=== PATIENT | female | born 1990 | race Caucasian/White ===

== ENCOUNTER 2018-10-27 16:57 | Inpatient (IN) | payer SELFPAY ==
[~2018-10-27] VITALS: Ht 154.9 cm; Wt 50.7 kg
[2018-10-27] MEDS ORDERED: GUAI600T30 PO (17:21)
[2018-10-27 17:46] LABS: BASOPHILS % (AUTO) 0.4 % (0.0-2.0); EOSINOPHILS % (AUTO) 0 % (1.0-6.0); HEMATOCRIT 42.5 % (36-46); LYMPHOCYTES % (AUTO) 26.6 % (22.0-44.0); MEAN CORPUSCULAR HEMOGLOBIN 31.3 pg (26.0-34.0); MEAN CORPUSCULAR VOLUME 95 fL (80-100); MONOCYTES # (AUTO) 0.4 K/uL (0.1-1.0); NEUTROPHILS # (AUTO) 5.2 K/uL (1.8-7.7); PLATELET COUNT (AUTO) 219 K/uL (150-450); RED BLOOD CELL COUNT(AUTO) 4.48 MIL/uL (4.00-5.20); RED CELL DISTRIBUTION WIDTH 13.7 % (11.5-14.5)
[2018-10-27 18:02] LABS: ANION GAP 15 mmol/L (8-16); CALCIUM, TOTAL 9.8 mg/dL (8.8-10.5); CARBON DIOXIDE 25 mmol/L (22-29); CHLORIDE 103 mmol/L (98-107); CREATININE 0.81 mg/dL (0.60-1.30); GLOMERULAR FILTR. RATE CALC > 60 mL/min (>60); GLUCOSE,RANDOM 95 mg/dL (70-110); POTASSIUM 3.5 mmol/L (3.5-5.1); SODIUM SERUM 143 mmol/L (136-145); UREA NITROGEN, BLOOD 15 mg/dL (7-18)
[2018-10-27 18:07] LABS: ALANINE AMINOTRANSFERASE 26 U/L (12-78); ALBUMIN 4.6 g/dL (3.4-5.0); ALKALINE PHOSPHATASE 62 U/L (46-116); ASPARTATE AMINOTRANSFERASE 19 U/L (15-37); BILIRUBIN,TOTAL 0.7 mg/dL (0.1-1.0); TOTAL PROTEIN, SERUM 8.6 g/dL (6.4-8.2)
[2018-10-27 18:45] LABS: AMPHET/METH SCREEN,URINE NEGATIVE (NEGATIVE); BARBITURATE SCREEN, URINE NEGATIVE (NEGATIVE); BENZODIAZEPINES SCREEN,URINE NEGATIVE (NEGATIVE); CANNABINOID SCREEN,URINE POSITIVE (NEGATIVE); COCAINE SCREEN,URINE NEGATIVE (NEGATIVE); METHADONE SCREEN, URINE NEGATIVE (NEGATIVE); OPIATE SCREEN,URINE NEGATIVE (NEGATIVE)
[2018-10-27 18:57] LABS: PHENCYCLIDINE SCREEN,URINE NEGATIVE (NEGATIVE)
[2018-10-27] MEDS ORDERED: LORazepam 2 MG TABLET PO ONE (19:45)
[2018-10-27] MEDS ORDERED: HALOPERIDOL 5 MG TABLET PO ONE (19:45)
[2018-10-27] MEDS ORDERED: LORazepam 2 MG/ML VIAL IM ONE (20:15)
[2018-10-27] MEDS ORDERED: HALOPERIDOL LACTATE 5 MG/ML VIAL IM ONE (20:15)
[2018-10-27] MEDS ORDERED: DiphenhydrAMINE HCL 50 MG/ML VIAL IM ONE (20:15)
[2018-10-27] MEDS ORDERED: ZOLPIDEM TARTRATE 10 MG TABLET PO PRN (20:45)
[2018-10-27] MEDS ORDERED: HALOPERIDOL 5 MG TABLET PO PRN (20:45)
[2018-10-27] MEDS ORDERED: LORazepam 2 MG TABLET PO PRN (20:45)
[2018-10-27 22:07] VITALS: BP 120/88
[2018-10-27] MEDS ORDERED: MAGNESIUM HYDROXIDE SUSPENSION 30 ML UDCUP PO PRN (22:15)
[2018-10-27] MEDS ORDERED: ONDANSETRON HCL 4 MG TABLET PO PRN (22:15)
[2018-10-27] MEDS ORDERED: LOPERAMIDE HCL 2 MG CAPSULE PO PRN (22:15)
[2018-10-27] MEDS ORDERED: CloNIDine HCL 0.1 MG TABLET PO PRN (22:15)
[2018-10-27] MEDS ORDERED: PETROLATUM,WHITE 28 GM JELLY TP PRN (22:15)
[2018-10-27] MEDS ORDERED: MAG HYDROX/AL HYDROX/SIMETH ES 30 ML SUSPENSION UDCUP PO PRN (22:15)
[2018-10-27] MEDS ORDERED: GuaiFENesin/D-METHORPHAN [SUGAR-FREE] 200-20MG/10 ML SYRUP UDCUP PO PRN (22:15)
[2018-10-27] MEDS ORDERED: NICOTINE 14 MG/24 HOUR PATCH TD PRN (22:15)
[2018-10-27] MEDS ORDERED: IBUPROFEN 400 MG TABLET PO PRN (22:15)
[2018-10-27] MEDS ORDERED: ALBUTEROL SULFATE HFA 90 MCG/PUFF 8 GM INHALER IH PRN (22:15)
[2018-10-27] MEDS ORDERED: DOCUSATE SODIUM 100 MG CAPSULE PO PRN (22:15)
[2018-10-28 06:39] VITALS: BP 93/50
[2018-10-28 08:12] VITALS: BP 102/53
[2018-10-28 08:55] LABS: HEMOGLOBIN A1C 5.4 % (4.5-6.2)
[2018-10-28 09:26] LABS: CHOL/HDL RATIO 3.4 (3.9-5.7); THYROID STIMULATING HORMONE 1.93 uIU/mL (0.36-3.74)
[2018-10-28 16:20] VITALS: BP 125/73
[2018-10-29 02:30] VITALS: BP 97/60
[2018-10-29 09:50] VITALS: BP 118/87
[2018-10-29] MEDS: ACETAMINOPHEN 325 MG TABLET PO PRN ×2 (11:42→20:09)
[2018-10-29 16:00] VITALS: BP 109/65
[2018-10-30 01:11] VITALS: BP 126/79
[2018-10-30 08:30] VITALS: BP 119/76
== END 2018-10-30 13:30 | disposition home or self-care (01) | DRG 885 ==
LOC: EMS 17:00 → B3A 20:30
PROVIDERS: ADMIT Psychiatry & Neurology Psychiatry; ATTEND Psychiatry & Neurology Psychiatry
DX: F25.9 Schizoaffective disorder, unspecified (principal); F19.959 Other psychoactive substance use, unspecified with psychoactive substance-induced psychotic disorder, unspecified; F41.9 Anxiety disorder, unspecified; G44.209 Tension-type headache, unspecified, not intractable; F10.10 Alcohol abuse, uncomplicated; F12.90 Cannabis use, unspecified, uncomplicated; F99 Mental disorder, not otherwise specified
CPT/HCPCS: 83036; 84443; 96372; G0480; J1200; J1630; J2060